=== PATIENT | male | born 1945 | race Caucasian/White ===

== ENCOUNTER 2017-03-19 10:20 | Inpatient (IN) | payer MEDICARE, OTHER ==
[~2017-03-19 10:20] MED LIST: ALEVE220 M1 PO; ASA-CA CARB-MA325 MG PO; ASPIR 8181 MG PO; ASPIRIN81 M1 PO; CPAP; DULCOLAX10 MG/SUPP RC; FISH OIL 1,2001 EAC5 PO; IRON325 M2 PO; MULTI-VITAMIN1 EAC3 PO; NAPROXEN250 M1 PO; NORCO 7.5/325 T1 TAB PO; OMEPRAZOLE40 M2 PO; PRILOSEC40 MG PO; SENOKOT-S (SENN1 TA1 PO; TUMS PO; TYLENOL TA325 MG/TAB PO; VITAMIN D5000 UNI2 PO; XARELTO10 MG PO; [UNRECOGNIZED DRUG - MIXTURE] PO
[2017-03-19 11:21] LABS: PROTHROMBIN TIME 11.2 SECONDS (9.0-13.6)
[2017-03-19] MEDS ORDERED: ULTRAM50 M1 PO (11:38)
[2017-03-20 05:31] LABS: BASO % 0.1 % (0-2); HCT-HEMATOCRIT 35.6 % (36.0-53.5); HGB-HEMOGLOBIN 12.1 gm/dl (13.5-17.0); IMMATURE GRANULOCYTES ABSOLUTE 0.02 tho/cmm (0-0.03); IMMATURE GRANULOCYTES PERCENT 0.2 % (0-0.3); LYMPH % 8.6 % (20-45); MCH (MEAN CORPUSCULAR HGB) 31.1 pg (28.0-32.0); MCV (MEAN CELL VOLUME) 91.5 fl (82.0-96.0); MEAN PLATELET VOLUME 10.1 cmc (9.4-12.4); MONO % 6.8 % (0-12); MONOCYTE ABSOLUTE COUNT 0.8 tho/cmm (0.0-1.2); NEUTROPHIL ABSOLUTE COUNT 9.3 tho/cmm (1.6-8.0); NEUTROPHIL-AUTOMATED 9.3 tho/cmm (1.6-8.0); NEUTROPHILS % 84.3 % (40-80); PLATELET COUNT 230 tho/cmm (150-450); RED BLOOD COUNT 3.89 mil/cmm (4.40-5.70); WHITE BLOOD COUNT 11.1 tho/cmm (4.0-10.0)
[2017-03-21] MEDS ORDERED: ASPIRIN325 M3 PO (09:25)
[2017-03-21] MEDS ORDERED: BACLOFEN10 M1 PO (09:25)
[2017-03-21] MEDS ORDERED: CELEBREX200 M1 PO (09:26)
[2017-03-21] MEDS ORDERED: ROXICODONE5 M2 PO (09:27)
[2017-03-21] MEDS ORDERED: TYLENOL325 M2 PO (09:28)
== END 2017-03-21 13:53 | DRG 468 ==
LOC: SHSA 10:20 → ORE 12:37 → PACU 15:45 → 5EA 17:12
PROVIDERS: Physician Assistant; ADMIT Orthopaedic Surgery Sports Medicine
PROC: 0SRC0J9 Replacement of Right Knee Joint with Synthetic Substitute, Cemented, Open Approach (ICD-10-PCS; principal; 2017-03-19)
PROC: 0SPC0JZ Removal of Synthetic Substitute from Right Knee Joint, Open Approach (ICD-10-PCS; 2017-03-19)
PROC: 5A09357 Assistance with Respiratory Ventilation, Less than 24 Consecutive Hours, Continuous Positive Airway Pressure (ICD-10-PCS; 2017-03-19)
DX: T84.032A Mechanical loosening of internal right knee prosthetic joint, initial encounter (principal); M65.9 Synovitis and tenosynovitis, unspecified; Z79.82 Long term (current) use of aspirin; Z85.46 Personal history of malignant neoplasm of prostate; Z91.81 History of falling
CPT/HCPCS: C1713; J0171; J0690; J1885; J2270; J2795; J3370